=== PATIENT | female | born 1965 | race Caucasian/White ===

== ENCOUNTER → 2016-12-08 | Outpatient (CLI) | payer OTHER ==
--- NOTE | 2016-12-08 11:17 | MR ---
EXAMINATION TYPE: MR shoulder RT wo con DATE OF EXAM: 12/08/2016 10:59 AM COMPARISON: NONE HISTORY: 51-year-old female with pain in the right shoulder. TECHNIQUE: Multiplanar, multisequence imaging of the right shoulder is performed without contrast. FINDINGS: There is attenuation and abnormal signal within the long head biceps tendon at the junction of the in tracapsular and extracapsular portions, sagittal T2 FS images 11 through 13. The biceps tendon remain s appropriately situated along the bicipital groove. There is intermediate signal throughout the subscapularis tendon with thickening and intrasubstance t ear involving the superior third fibers. The majority of the subscapularis tendon remains intact. There is moderate to severe degenerative joint space narrowing with marginal spurring and capsular hy pertrophy at the acromioclavicular joint. The hypertrophied joint capsule abuts the underlying myoten dinous junction of the supraspinatus without significant mass effect. There is mild thickening of the subacromial/subdeltoid bursa without nadya fluid distention. There is heterogeneity of both the supraspinatus and infraspinatus tendons without discrete tear. No atrophy of the rotator cuff musculature. Findings are suspicious for a glenoid labral tear at the posterior inferior quadrant, axial image 10. There is an adjacent cartilage fissure along the inferior glenoid, coronal image 18 and either an un derlying 4 mm subchondral cyst or intraosseous ganglion. The posterior axillary recess is patulous though the anterior inferior glenohumeral ligament appears intact. There is mild to moderate glenohumeral joint effusion. No Hill-Sachs deformity or os acromiale. No suspicious bone marrow replacement. Some patchy areas of red marrow are present in the seen in the setting of anemia, obesity, smoking, and chronic disease. IMPRESSION: 1. Glenoid labral tear along the posterior inferior quadrant with an adjacent cartilage defect of the inferior glenoid. 2. The posterior axillary recess is patulous probably due to the joint effusion. The anterior portion of the IGHL appears intact. 3. Diffuse rotator cuff tendinosis with intrasubstance tear of the superior third subscapularis tendo n fibers. The majority of the subscapularis tendon remains intact. Otherwise, no discrete rotator cuf f tear. 4. Findings suspicious for a partial long head biceps tendon tear at the junction of the intracapsula r and extracapsular portions. 5. 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
== END ==
LOC: RADMRIMAIN 10:22
PROVIDERS: ATTEND Family Medicine
DX: S43.401A Unspecified sprain of right shoulder joint, initial encounter (principal); M75.82 Other shoulder lesions, left shoulder; M19.012 Primary osteoarthritis, left shoulder

== ENCOUNTER → 2021-04-18 | Outpatient (CLI) | payer OTHER ==
--- NOTE | 2021-04-18 16:15 | US ---
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 Lump in neck GLAND SIZE: Right Lobe: 6.0 x 1.5 x 1.8 cm Overall Parenchyma: homogenous Left Lobe: 4.2 x .8 x 1.7 cm Overall Parenchyma: homogeneous Isthmus Thickness: .3 cm NODULES RIGHT: # of nodules measured on right: 0 LEFT: # of nodules measured on left: 0 ISTHMUS: # of nodules measured in the isthmus: 0 Bilateral neck scanned, no evidence of lymphadenopathy. Sonographic evaluation of patient's palpable lump in the region of the neck was obtained. No cyst or mass is seen. IMPRESSION: No discrete nodules. Thyroid parenchyma is homogenous. No sonographic finding at the site of patient's palpable lump in the neck.
== END | disposition home or self-care (01) ==
LOC: RADUSWWP 12:39
PROVIDERS: ATTEND Family Medicine
DX: E04.8 Other specified nontoxic goiter (principal); R22.1 Localized swelling, mass and lump, neck
CPT/HCPCS: 76536

== ENCOUNTER 2022-03-16 11:46 | Day surgery (SDC) | payer OTHER ==
[2022-02-07 18:12] VITALS: BMI 31.6
[2022-03-16 13:25] LABS: Glucose,Whole Blood 135 mg/dL (75-99)
[2022-03-16 13:32] VITALS: TEMP 97.9
[2022-03-16] MEDS: LACTATED RINGERS 1,000 ML IV SCH ×2 (13:32→13:44)
[2022-03-16] MEDS ORDERED: PROPOFOL 10 MG/ML 20 ML VIAL IV ONE (13:45)
--- NOTE | 2022-03-16 14:03 | P.PCN ---
Date of Procedure: 03/16/22 Procedure(s) Performed: BRIEF HISTORY: Patient is a 57-year-old pleasant female scheduled for an elective colonoscopy as a part of screening for colorectal neoplasia. PROCEDURE PERFORMED: Colonoscopy. PREOPERATIVE DIAGNOSIS: Screening for colon cancer. IV sedation per Anesthesia. PROCEDURE: After informed consent was obtained, the patient, was brought into the endoscopy unit. IV sedation was administered by Anesthesia under continuous monitoring. Digital rectal examination was normal. Initially the Olympus CF-160 flexible video colonoscope was then inserted in the rectum, gradually advanced into the cecum without any difficulty. Careful examination was performed as the scope was gradually being withdrawn. Ileocecal valve and the appendiceal orifice were visualized and appeared normal. Prep was poor and several areas of the colon. Some parts of the colon could not be adequately visualized because of thick solid stool. The visualized portions of the mucosa of the cecum, ascending colon, transverse colon, descending colon, sigmoid colon, and rectum appeared normal. Retroflexion was performed in the rectum and no lesions were seen. The patient tolerated the procedure well. IMPRESSION:Normal-appearing colon from rectum to cecum with no evidence of colorectal neoplasia . Poor prep in several areas of the colon RECOMMENDATIONS: Findings of this examination were discussed with the patient as well as a family. She was advised to have a repeat colonoscopy in 5 years from now. .
[2022-03-16 14:54] VITALS: BP 131/61; PULSE 78; RESP 18
== END 2022-03-16 15:15 | disposition home or self-care (01) ==
LOC: ORWHC2ENDO 11:46
PROVIDERS: ATTEND Internal Medicine Gastroenterology
DX: Z12.11 Encounter for screening for malignant neoplasm of colon (principal); E11.9 Type 2 diabetes mellitus without complications; E66.01 Morbid (severe) obesity due to excess calories; Z68.32 Body mass index [BMI] 32.0-32.9, adult; Z98.51 Tubal ligation status; Z98.890 Other specified postprocedural states; Z79.84 Long term (current) use of oral hypoglycemic drugs; Z79.899 Other long term (current) drug therapy
CPT/HCPCS: J2704; G0121